=== PATIENT | male | born 1940 | race Caucasian/White ===

== ENCOUNTER 2023-03-29 05:08 | Day surgery (SDC) | payer MEDICARE, BC ==
[2023-03-25 13:30] LABS: BASOPHILS # (AUTO) 0.1 X10'3 (0-0.2); EOSINOPHILS # (AUTO) 0.1 X10'3 (0-0.9); LYMPHOCYTES # (AUTO) 3.8 X10'3 (1.1-4.8); LYMPHOCYTES % (AUTO) 49.4 % (21-51); MONOCYTES # (AUTO) 0.5 X10'3 (0-0.9); NEUTROPHILS # (AUTO) 3.2 X10'3 (1.8-7.7); PRE OP HEMATOCRIT 41.4 % (42.0-52.0); RED CELL DISTRIBUTION WIDTH 13.9 % (11.5-14.5)
[2023-03-25 13:31] LABS: BASOPHILS % (AUTO) 0.8 % (0-1); EOSINOPHILS % (AUTO) 1.5 % (0-6); MEAN CORPUSCULAR HEMOGLOBIN 30.9 PG (27.0-31.0); MEAN CORPUSCULAR HGB CONC 33.2 g/dL (33.0-36.5); MEAN CORPUSCULAR VOLUME 92.9 FL (78-98); MEAN PLATELET VOLUME 8.3 FL (7.4-10.4); MONOCYTES % (AUTO) 6.5 % (2-12); NEUTROPHILS % (AUTO) 41.8 % (42-75); PRE OP HEMOGLOBIN 13.7 g/dL (14.0-17.9); PRE OP PLATELET COUNT 185 X10'3 (140-440); RED BLOOD COUNT 4.45 X10'6 (4.70-6.10)
[2023-03-25 13:44] LABS: ALBUMIN 3.9 G/DL (3.4-5.0); ALBUMIN/GLOBULIN RATIO 1.4 (1.1-1.5); ALKALINE PHOSPHATASE 59 IU/L (46-116); BLOOD UREA NITROGEN 19 MG/DL (7-18); BUN/CREATININE RATIO 20.2 (10.0-20.0); CALCIUM 9.3 MG/DL (8.5-10.1); CHLORIDE 109 MMOL/L (99-107); CREATININE 0.94 MG/DL (0.60-1.10); PRE OP ALT 31 U/L (30-65); PRE OP ANION GAP 8 (8-16); PRE OP AST 24 U/L (10-37); PRE OP BILIRUB, TOTAL 0.4 MG/DL (0.0-1.0); PRE OP GLUCOSE 141 MG/DL (70-104); PRE OP POTASSIUM 3.8 MMOL/L (3.4-5.1); PRE OP SODIUM 142 MMOL/L (135-145); TOTAL CARBON DIOXIDE 24.7 MMOL/L (24-32); TOTAL PROTEIN 6.6 G/DL (6.4-8.2); eGFR 77 ML/MIN
[2023-03-25 14:57] LABS: TOTAL CELLS COUNTED 100
[2023-03-25 15:00] LABS: PLATELET ESTIMATE NORMAL; SMUDGE CELLS 2+
[2023-03-25 15:02] LABS: ELLIPTOCYTES FEW
[~2023-03-29] VITALS: Ht 185.4 cm; Wt 101.2 kg
[~2023-03-29 05:08] MED LIST: ASPI-1071 PO; ATOR10TA70 PO; AZEL30SP3 BOTHNARES; CART1TAB5 PO; CELE-85 PO; MULT-1141 PO; OMEP40CA21 PO; VALA100031 PO; WHEA98PO PO; [UNRECOGNIZED DRUG - OTHER] PO; ringers solution, lacted 1,000 ML IV SCH
[2023-03-29 05:30] VITALS: BP 133/76; PULSE 76; RESP 16; TEMP 98; O2SAT 96
[2023-03-29] MEDS ORDERED: cefazolin 2gm/D5W 100mL 100 ML IV ONE (05:30)
[2023-03-29] MEDS ORDERED: famotidine 20mg tablet PO ONE (05:30)
[2023-03-29] MEDS ORDERED: BUPIVAcaine/PF 2.5 mg/ml (0.25%) 30ml vial ONE (06:47)
[2023-03-29] MEDS ORDERED: LIDOcaine 0.5% (5mg/ml) 50ml vial ONE (07:18)
[2023-03-29] MEDS ORDERED: fentaNYL/PF 50MCG/1 ML 2ML syringe ONE (07:22)
[2023-03-29] MEDS ORDERED: midazolam 1 mg/ML 2ml injection ONE (07:22)
[2023-03-29] MEDS ORDERED: proCHLORperazine 10 MG/2 ml inj IV PRN (07:25)
[2023-03-29] MEDS ORDERED: morphine 2 MG/ML inj. syringe IV PRN (07:25)
[2023-03-29] MEDS ORDERED: meperidine/PF 25mg/ml syringe IV PRN ×3 (07:25)
[2023-03-29] MEDS ORDERED: ondansetron/PF 4mg/2ml inj IV PRN (07:25)
[2023-03-29] MEDS ORDERED: morphine 4 MG/ML inj SYRINge IV PRN (07:25)
[2023-03-29] MEDS ORDERED: ringers solution, lacted 1,000 ML IV SCH (07:25)
[2023-03-29 08:03] VITALS: BP 125/90; PULSE 49; RESP 14; O2SAT 98
--- NOTE | 2023-03-29 08:03 | NUR ---
Received from OR via [facility] TO [facility] , accompanied by Anesthesiologist DR COSTA and report given by Anesthesiolgist. PT PRESENTS WITH PIV 20G RIGHT HAND, DRESSING ON LEFT HAND CDI, VSS. Addendum: 03/29/23 at 0815 by Rosie Mendoza RN, RN Amended: Links added.
[2023-03-29 08:10] VITALS: BP 126/85; PULSE 49; RESP 10; O2SAT 97
[2023-03-29 08:20] VITALS: BP 129/62; PULSE 48; RESP 16; O2SAT 96
[2023-03-29 08:30] VITALS: BP 119/60; PULSE 54; RESP 16; O2SAT 98
[2023-03-29 08:43] VITALS: BP 119/60; PULSE 54; RESP 16; O2SAT 98
--- NOTE | 2023-03-29 08:43 | NUR ---
ABLE TO SAFELY AMBULATE AND TRANSFER SELF. IV TAKEN OUT WITHOUT ANY COMPLICATIONS. ALL DISCHARGE INSTRUCTIONS COVERED WITH PATIENT AND ALL QUESTIONS ANSWERED. PATIENT TAKEN OUT VIA WHEELCHAIR TO PERSONAL VEHICLE WHERE FAMILY/FRIEND DROVE PATIENT HOME. Addendum: 03/29/23 at 0900 by Rosie Mendoza RN, RN Amended: Links added.
== END 2023-03-29 08:43 | disposition home or self-care (01) ==
LOC: PAS 05:08
PROVIDERS: ATTEND Orthopaedic Surgery Hand Surgery
DX: G56.02 Carpal tunnel syndrome, left upper limb (principal); M18.11 Unilateral primary osteoarthritis of first carpometacarpal joint, right hand; G47.30 Sleep apnea, unspecified; I10 Essential (primary) hypertension; K21.9 Gastro-esophageal reflux disease without esophagitis; Z85.51 Personal history of malignant neoplasm of bladder; Z85.828 Personal history of other malignant neoplasm of skin; Z88.7 Allergy status to serum and vaccine; Z79.899 Other long term (current) drug therapy; Z98.890 Other specified postprocedural states; Z72.89 Other problems related to lifestyle
CPT/HCPCS: 36415; 64721; 80053; 82948; 85025; J0690; J2250; J3010; J3490; J7030; J7120; Z7506; Z7512; 85007; A4215